=== PATIENT | female | born 1945 | race Caucasian/White ===

== ENCOUNTER 2025-08-27 18:22 | Emergency (ER) | payer MEDICARE ==
[~2025-08-27] VITALS: Ht 167.6 cm; Wt 109.8 kg
--- NOTE | 2025-08-27 20:06 | HMCIMG ---
EXAM: CR right Knee, 4 View. CLINICAL HISTORY: pain COMPARISON: None provided. FINDINGS: BONES: No acute fracture or aggressive appearing osseous lesion. JOINTS: Medial compartment predominant mild to moderate tricompartmental right knee joint osteoarthritis. Small knee joint effusion. SOFT TISSUES: The soft tissues are unremarkable. IMPRESSION: 1. Mild to moderate tricompartmental right knee osteoarthritis, predominantly in the medial compartment, with small joint effusion. 2. No acute fracture. /[place]
[2025-08-27] MEDS ORDERED: DICL20GE TP (20:33)
--- NOTE | 2025-08-27 20:33 | ERN ---
ED Note History of Present Illness Stated Complaint: RT LEG SWELLING Chief Complaint: Lower Extremity Pain/Injury Time Seen by MD: 18:34 Time Seen by Midlevel: 18:34 Dictation: The patient is an 80-year-old female with a history of appendectomy, right hip surgery who presents to the emergency department with complaints of nontraumatic right knee pain. Patient reports she went to her PCP on Thursday and gave her some prescriptions for pain medication which caused her to have diarrhea so she stopped taking them. Patient denies any fevers. Reports her PCP told her she had osteoarthritis. Allergies: Coded Allergies: No Known Drug Allergies (Unverified Allergy, Unknown, 08/27/25) Past Medical History Past Medical History: High Cholesterol, Hypertension Surgical History: None RN Note Reviewed/Agreed w/PFSH: Yes Review of System Dictation Constitutional: Negative for fever,chills, and weight loss Eyes: Negative for injury, pain,redness, and discharge ENT: Negative for injury,pain or swelling Cardiovascular: Negative for chest pain, palpitations, and edema Respiratory: Negative for shortness of breath, cough, and wheezing, Abdomen/GI: Negative for abdominal pain, nausea, vomiting, diarrhea, and constipation Back: Negative for injury and pain : Negative for injury, bleeding and discharge MS/Extremity: Positive for right knee pain Skin: Negative for rash, and discoloration Neuro: Negative for headache, weakness, numbness, tingling, and seizure Psych: Negative for suicide ideation, homicidal ideation, and hallucinations Initial Vital Sign VS Vital Signs Date Time Temp Pulse Resp B/P (MAP) Pulse Ox O2 Delivery O2 Flow Rate FiO2 08/27/25 18:26 98.8 92 18 161/66 97 08/27/25 19:40 Room Air* 0 21 Physical Exam Dictation Vital Signs reviewed General Appearance: Alert, oriented x 3, no acute distress, well developed, nourished. Head and Face: non-traumatic. Eyes: PERRL, pink conjunctivas, eyelid no trauma, anterior chamber with arcus senilis. Ears: Pinnas intact and no signs of trauma or erythema ear canals clear and no discharge TM no erythema Nose: No discharge, no bleeding. Oropharynx: Mouth normal, tongue pink. pharynx clear,no erythema, tonsils no exudates, no abscesses noted, mucous membrane moist Neck: Supple, non-tender, no thyromegaly, no masses, no JVD, no bruits Breast:Deferred Chest:No tenderness, no crepitus, no paradoxical movement, no retractions Lungs:Clear, well-ventilated, symmetric, no rales, no wheezing, no rhonchi, no stridor, good breath sounds bilaterally Heart: Regular rate, regular rhythm, no murmur, no gallops Vascular: no peripheral edema, dorsalis pedis 2+ bilaterally Abdomen: Soft, positive bowel sounds, nondistended, no guarding, nontender, no rebound, no masses no hepatomegaly, no splenomegaly, no Do's sign, no hernias. Rectal: Deferred Genital: Deferred Neurological: Normal speech, motor function intact, sensory function intact Musculoskeletal: Neck nontender, full range of motion, back nontender, full range of motion, Extremities: nontender, full range of motion , tenderness to right knee, full range of motion Skin: Color pink, dry, no turgor, no rash, no lacerations, no abrasions, no contusions. Lymphatic: Deferred Results (Laboratory/Radiology) Laboratory/Radiology REASON: pain ORDERING PHYSICIAN: DAVE TRINH [employer] OFFICER PROCEDURE: KNEE 3V RT - KNEE 3VWS RT EXAM: CR right Knee, 4 View. CLINICAL HISTORY: pain COMPARISON: None provided. FINDINGS: BONES: No acute fracture or aggressive appearing osseous lesion. JOINTS: Medial compartment predominant mild to moderate tricompartmental right knee joint osteoarthritis. Small knee joint effusion. SOFT TISSUES: The soft tissues are unremarkable. IMPRESSION: 1. Mild to moderate tricompartmental right knee osteoarthritis, predominantly in the medial compartment, with small joint effusion. 2. No acute fracture. /[place] Labs Reviewed?: Yes ED Course ED Course Orders Procedure Category Date Status Time Knee 3vws Rt RAD 08/27/25 Resulted 18:52 Acetaminophen 500mg PHA 08/27/25 Complete Tab (Tylenol 500mg T 19:00 Knee Immobilizer SAMMY 08/27/25 In Process 18:52 Current Medications Medications (Trade) Dose Ordered Sig/[place] Route PRN Reason Start Time Stop Time Status Last Admin Dose Admin Acetaminophen (TYLenol 500MG TAB) 1,000 mg ONCE ONCE PO 08/27/25 19:00 08/27/25 19:01 DC 08/27/25 19:40 Vital Signs Date Time Temp Pulse Resp B/P (MAP) Pulse Ox O2 Delivery O2 Flow Rate FiO2 08/27/25 19:40 98.2 82 20 149/72 94 Room Air* 0 21 08/27/25 18:26 98.8 92 18 161/66 97 Medical Decision Making MDM The patient is an 80-year-old female with a history of appendectomy, right hip surgery who presents to the emergency department with complaints of nontraumatic right knee pain. Patient reports she went to her PCP on Thursday and gave her some prescriptions for pain medication which caused her to have diarrhea so she stopped taking them. Patient denies any fevers. Reports her PCP told her she had osteoarthritis. X-ray showed osteoarthritis of the right knee and a small effusion. Patient otherwise neurovascularly intact. There is no fevers, there is no redness to the knee. Patient was placed on a knee immobilizer and we will be sent to see ortho. Patient ambulatory, in no acute distress. Stable vital signs. Differential diagnosis: Knee sprain, osteoarthritis of the knee, knee fracture Need for hospitalization: Patient does not meet criteria for hospitalization. There are no social concerns with this patient. DX & DISP Disposition: Discharge Departure Impression: Primary Impression: Osteoarthritis of right knee Additional Impression: Knee effusion, right Condition: Stable Scripts Diclofenac Sodium (Voltaren Arthritis Pain) 1 % Gel..gram. 4 GM TP TID PRN for PAIN for 10 Days, #1 TUBE Prov: DAVE TRINH [employer] OFFICER 08/27/25 Additional Instructions: Your x-rays did not show any fractures. There is some osteoarthritis. There is a small knee effusion. Please follow up with ortho. You can call Dr. Parks's office to make an appointment tomorrow. Follow up with your primary doctor in 1-2 days. If anything worsens please return to ER. [facility] [address] [place] [address], [phone] FOLLOW-UP WITH PRIMARY CARE PROVIDER IN 1 TO 2 DAYS. TAKE MEDICATIONS DIRECTED HERE IN THE EMERGENCY ROOM. OKAY TO CONTINUE HOME MEDICATIONS UNLESS OTHERWISE DISCUSSED DURING YOUR VISIT IN THE EMERGENCY ROOM TODAY. RETURN TO YOUR NEAREST EMERGENCY ROOM IF SYMPTOMS WORSEN OR IF THERE IS NO IMPROVEMENT. CALL 911 IF YOU NEED IMMEDIATE ASSISTANCE. TAKE TYLENOL [id number] NEEDED AND IF NO CONTRAINDICATIONS ARE PRESENT. INCREASE ORAL HYDRATION. A WOUND CULTURE OR URINE CULTURE WAS ORDERED HERE IN THE EMERGENCY ROOM DEPARTMENT PLEASE FOLLOW-UP WITH PRIMARY CARE PROVIDER AND ADVISE THEM TO GET REPEAT PORTS FROM OUR FACILITY. IF YOU HAD ANY NEETU WRAP/SPLINTS THAT WERE APPLIED HERE, PLEASE DO NOT REMOVE THEM UNTIL YOU SEE YOUR PRIMARY CARE OR SPECIALTY. Referrals: SELF,REFERRAL (PCP) JOE PARKS MD Time of Disposition: 20:33 I have reviewed the case, and I agree with, Diagnosis and Plan DAVE TRINH [facility] Aug 27, 2025 20:33
[2025-08-27 20:57] VITALS: BP 152/76; PULSE 76; RESP 18; TEMP 98.3; O2SAT 96
== END 2025-08-27 21:00 | disposition home or self-care (01) ==
LOC: EDH 18:22
DX: M17.11 Unilateral primary osteoarthritis, right knee (principal); M25.461 Effusion, right knee; E78.00 Pure hypercholesterolemia, unspecified; I10 Essential (primary) hypertension
CPT/HCPCS: 29505; 73562; 99283